=== PATIENT | female | born 1940 | race Two or more races ===

== ENCOUNTER 2016-02-27 20:45 | Emergency (ER) | payer MEDICARE, BC ==
[~2016-02-27] VITALS: Ht 160 cm; Wt 63.5 kg
[2016-02-27] MEDS ORDERED: Lidocaine 1% 10mg/ml/Epi 0.005mg/ml 30ml vial INJ ONE (21:30)
[2016-02-27] MEDS ORDERED: TdaP Vaccine 0.5ml Syr IM ONE (21:30)
--- NOTE | 2016-02-27 21:44 | Emergency Room Report ---
History of Present Illness General Chief Complaint: Head Injury Source: Patient Present Illness HPI 75 YO F with accidental slip and fall at home with laceration to back of head. Denies being on ASA, other AC. C./o severe headache at time of fall, not currently. Denies nausea/vomiting, blurry/change of vision, extremity weakness. No history of CVA or AMI. Denies other injury. Unsure re last tetanus. Allergies: Coded Allergies: No Known Allergies (Unverified , 02/27/16) Patient History Past Medical History: none Past Surgical History: none Pertinent Family History: none Social History: Denies: alcohol use, drug use, smoking Now: No Immunizations: other - Tetanus not up to date Reviewed Nursing Documentation: PMH: Agreed, PSxH: Agreed Nursing Documentation-PMH Past Medical History: No Stated History Review of Systems All Other Systems: negative except mentioned in HPI Physical Exam Vital Signs Date Time Temp Pulse Resp B/P Pulse Ox O2 Delivery O2 Flow Rate FiO2 02/27/16 20:54 97.9 62 14 154/86 100 Room Air Sp02 EP Interpretation: reviewed, normal General Appearance: normal inspection, well appearing, no apparent distress, alert, GCS 15, non-toxic Head: normocephalic, other - 4cm vertical lac to occiput. No fb. No active bleeding ENT: normal ENT inspection, hearing grossly normal, normal voice Neck: normal inspection, full range of motion, supple, no bony tend Respiratory: normal inspection, lungs clear, normal breath sounds, no respiratory distress, no retraction, no wheezing Cardiovascular #1: regular rate, rhythm, no edema Gastrointestinal: normal inspection, normal bowel sounds, non tender, soft, no guarding, no hernia Genitourinary: no CVA tenderness Musculoskeletal: normal inspection, back normal, normal range of motion, Ergis' s Sign negative Neurologic: normal inspection, alert, responsive, speech normal Psychiatric: normal inspection, judgement/insight normal, mood/affect normal Skin: normal inspection, normal color, no rash Medical Decision Making Diagnostic Impression: Primary Impression: Acute head injury Qualified Codes: S09.90XA - Unspecified injury of head, initial encounter Additional Impressions: Occipital scalp laceration Qualified Codes: S01.01XA - Laceration without foreign body of scalp, initial encounter Fall (on) (from) other stairs and steps, initial encounter ER Course 75 YO F with slip and fall at home with occipital head laceration s/p primary repair in the ED. No ASA or AC on board CT head neg for acute traumatic ICH Tetanus updated DC home Last Vital Signs Date Time Temp Pulse Resp B/P Pulse Ox O2 Delivery O2 Flow Rate FiO2 02/27/16 20:54 97.9 62 14 154/86 100 Room Air Status: improved Disposition: HOME, SELF-CARE NORRIS RIVERA M.D. Feb 27, 2016 21:44
[2016-02-27 22:07] VITALS: BP 151/87
[2016-02-27 22:49] VITALS: BP 151/87
--- NOTE | 2016-02-28 09:11 | Diagnostic Imaging Report ---
Indication: Headache Technique: Contiguous 5 mm thick transaxial imaging of the head obtained in a Siemens Sensation [address] scanner. Soft tissue and bone windows generated. Total Dose length Product (DLP): [address] Dose Index Volume (CTDIvol): 70.38 mGy Comparison: none Findings: There is mild prominence of the ventricles, basal cisterns, and cerebral sulci consistent with atrophy. Mild, nonspecific, white matter hypoattenuation is noted throughout the brain consistent with chronic small vessel disease. There is no midline shift, edema, acute hemorrhage, mass effect, or abnormal extra-axial fluid collections. Bones and extra osseous soft tissues are unremarkable. Impression: No acute intracranial bleed, mass effect or edema. Mild atrophy of the brain. Nonspecific white matter hypoattenuation probably due to chronic small vessel disease. The CT scanner at [facility] is accredited by the [employer] and the scans are performed using protocols designed to limit radiation exposure to as low as reasonably achievable to attain images of sufficient resolution adequate for diagnostic evaluation.
== END 2016-02-27 22:51 | disposition home or self-care (01) ==
LOC: EMR 21:35
DX: S01.01XA Laceration without foreign body of scalp, initial encounter (principal); W01.0XXA Fall on same level from slipping, tripping and stumbling without subsequent striking against object, initial encounter; Y92.9 Unspecified place or not applicable; Z23 Encounter for immunization; G31.9 Degenerative disease of nervous system, unspecified
CPT/HCPCS: 70450; 90471; 90715; 99284

== ENCOUNTER 2016-03-03 09:03 | Emergency (ER) | payer MEDICARE, BC ==
[~2016-03-03] VITALS: Ht 157.5 cm; Wt 63.5 kg
[2016-03-03 09:14] VITALS: BP 118/72
[2016-03-03 09:32] VITALS: BP 121/69
--- NOTE | 2016-03-03 09:34 | Emergency Room Report ---
History of Present Illness General Chief Complaint: Wound Recheck/Suture Removal Source: Patient Present Illness HPI 75 YO F presents for staple removal s/p recent primary repair by me in ED for accidental head trauma. CT head was negative here. Patient denies fever/chills , itching, discharge to area. Had an episode of vomiting at home, patient's family member who is a director of sales and marketing ordered patient another CT head which was also negative. Allergies: Coded Allergies: No Known Allergies (Unverified , 02/27/16) Patient History Past Medical History: see triage record, old chart reviewed Past Surgical History: none Pertinent Family History: none Social History: Denies: alcohol use, drug use, smoking Last Menstrual Period: na Now: No Immunizations: UTD Reviewed Nursing Documentation: PMH: Agreed, PSxH: Agreed Nursing Documentation-PMH Past Medical History: No History, Except For Review of Systems All Other Systems: negative except mentioned in HPI Physical Exam Vital Signs Date Time Temp Pulse Resp B/P Pulse Ox O2 Delivery O2 Flow Rate FiO2 03/03/16 09:14 97.3 69 18 118/72 98 Room Air Sp02 EP Interpretation: reviewed, normal General Appearance: normal inspection, well appearing, no apparent distress, alert Head: normocephalic Eyes: bilateral eye EOMI, bilateral eye PERRL ENT: normal ENT inspection, hearing grossly normal, normal voice Neck: normal inspection, full range of motion, supple, no bony tend Respiratory: normal inspection, lungs clear, normal breath sounds, no respiratory distress, no retraction, no wheezing Cardiovascular #1: regular rate, rhythm, no edema Gastrointestinal: normal inspection, normal bowel sounds, non tender, soft, no guarding, no hernia Genitourinary: no CVA tenderness Musculoskeletal: normal inspection, back normal, normal range of motion, Regis' s Sign negative Neurologic: normal inspection, alert, oriented x3, responsive, tribal delegate III-XII nml as tested, motor strength/tone normal, speech normal Psychiatric: normal inspection, judgement/insight normal, mood/affect normal Skin: normal inspection, normal color, no rash Medical Decision Making Diagnostic Impression: Primary Impression: Encounter for removal of sutures ER Course 3 cecy removed Patient tolerated well VSS No sign of infection DC home Last Vital Signs Date Time Temp Pulse Resp B/P Pulse Ox O2 Delivery O2 Flow Rate FiO2 03/03/16 09:14 97.3 69 18 118/72 98 Room Air Status: improved Disposition: HOME, SELF-CARE Condition: Improved Patient Instructions: Wound Check Additional Instructions: Keep area clean Do not apply any creams or ointments to head Wash gently at night NORRIS RIVERA M.D. Mar 03, 2016 09:34
== END 2016-03-03 09:37 | disposition home or self-care (01) ==
LOC: EMR 09:28
DX: S01.91XD Laceration without foreign body of unspecified part of head, subsequent encounter (principal); Z48.02 Encounter for removal of sutures
CPT/HCPCS: 99281